=== PATIENT | male | born 1940 | race Caucasian/White ===

== ENCOUNTER 2016-04-14 10:18 | Day surgery (SDC) | payer MEDICARE, OTHER ==
[~2016-04-14] VITALS: Ht 175.3 cm; Wt 134.6 kg
[2016-04-14] VITALS (9 sets, daily range): BP systolic 112–143; BP diastolic 62–88; PULSE 55–79; RESP 13–19; O2SAT 91–98
[~2016-04-14 10:18] MED LIST: ASPI-973 PO; CETI10CA PO; COLC0.6T55 PO; CYA1000I IM; CeFAZolin Inj 3 GM in Dextrose 5% 50 ML IV ONE; FUR20 PO; HYDR30CR53 RC; KETO120S3 TP; LOSA25TA21 PO; Lactated Ringer's 1,000 ML IV SCH; METO25TA6 PO; PROB500T8 PO; ROPI0.5T2 PO; TAMS0.4C29 PO; [UNRECOGNIZED DRUG - OTHER]
[2016-04-14] MEDS ORDERED: Rocuronium 10 mg/mL 5 mL Inj ONE (10:19)
[2016-04-14] MEDS ORDERED: Neostigmine 1 mg/mL 5 mL Inj ONE (10:19)
[2016-04-14] MEDS ORDERED: Succinylcholine Chloride 20 mg/mL 5 mL Inj ONE (10:19)
[2016-04-14] MEDS ORDERED: Dexamethasone 4 mg/mL Inj ONE (10:19)
[2016-04-14] MEDS ORDERED: Propofol 10,000 mCg/mL 20 mL Inj ONE (10:19)
[2016-04-14] MEDS ORDERED: fentaNYL-PF 50 mCg/mL 2 mL Inj ONE (10:19)
[2016-04-14] MEDS ORDERED: Ondansetron 2 mg/mL 2 mL Inj ONE (10:19)
[2016-04-14] MEDS ORDERED: EPHEDrine/NS 5 mg/mL 5 mL Syringe ONE (10:19)
[2016-04-14] MEDS ORDERED: Glycopyrrolate 0.2 mg/mL 5 mL Inj ONE (10:19)
[2016-04-14] MEDS ORDERED: Lactated Ringer's 1,000 ML IV ONE (11:20)
[2016-04-14] MEDS ORDERED: Bacitracin 50,000 unit Inj IRRIGATION ONE (13:42)
[2016-04-14] MEDS ORDERED: Lactated Ringer's 1,000 ML IV SCH (13:48)
[2016-04-14] MEDS ORDERED: Lactated Ringer's 500 ML IV PRN (13:48)
--- NOTE | 2016-04-14 13:48 | PCM.HPANE ---
Patient Data Surgeon Admitting Provider: Attending Provider:Cesar Crow MD Primary Care Physician:Sher Lin Other Provider:Erica Alfaro Anesthesia Reason for Visit Left Distal Radius Fracture, Ulnar Styloid Fx Ht/WT & BMI Height (Feet): 5 Height (Inches): 9.00 Weight (Kilograms): 134.600 Body Mass Index 43.00 Allergies Coded Allergies: No Known Allergies (Verified Allergy, Unknown, 10/13/14) Past Anesthesia History Anesthesia History: Denies:: Abnormal Airway, Anesthesia Reactions, Difficult Intubation, Fam Anesthesia Reaction, Fam Malignant Hypertherm, Malignant Hyperthermia Diabetes History Hx Diabetes?: No MRSA MRSA: No Medications Blood Thinner: Aspirin Hypertension Medication: Yes Home Meds Incl Beta Estefani: Yes (Metoprolol) Date Beta Estefani Taken: Apr 14, 2016 Time Beta Estefani Taken: 0800 Reported Medications Cetirizine HCl (Zyrtec)10 Mg Giaeikq80 Mg PO HS #30 CAPSULE Ref 0 04/08/16 [wt management fiber] No Conflict Check3 Tab DAILY 04/08/16 Probenecid 500 Mg [id number] Mg PO BID 04/08/16 Losartan Potassium 25 Mg Xajnhi16 Mg PO DAILY 04/08/16 Cyanocobalamin (Cyanocobalamin Injection)1,000 Mcg/1 Ml Vial1,000 Mcg IM Monthly 04/08/16 Colchicine 0.6 Mg Tablet0.6 Mg PO DAILY 04/08/16 Tamsulosin ER 0.4 Mg Cap.er.24h0.4 Mg PO DAILY Ref 0 04/08/16 Ropinirole 0.5 Mg Tablet0.5 Mg PO HS Ref 0 04/08/16 Metoprolol Tartrate 25 Mg Gbxipx39 Mg PO BID 30 Days Ref 0 04/08/16 Ketoconazole 120 Ml [id number] Ml TP DAILY 04/08/16 Hydrocortisone 30 Gm Cream..g.30 Gm RC DAILY PRN skin irritation 04/08/16 Furosemide 20 Mg Tab20 Mg PO DAILY 30 Days Ref 0 04/08/16 Aspirin 81 Mg Tiiugo51 Mg PO DAILY Ref 0 04/08/16 Discontinued Reported Medications Multivitamin (Multi Vitamin Daily)1 Each Tablet1 Each PO DAILY 30 Days Ref 0 01/27/15 Metoprolol Tartrate 25 Mg Ktmpyh10 Mg PO BID 30 Days Ref 0 01/27/15 Betamethasone/Propylene Glyc (Betamethasone Dp Aug 0.05% Crm)15 Gm Cream..g.15 Gm TP 01/27/15 Aspirin 81 Mg Yselch95 Mg PO DAILY Ref 0 01/27/15 Tamsulosin ER 0.4 Mg Cap.er.24h0.4 Mg PO DAILY 30 Days Ref 0 08/13/14 Ropinirole 0.5 Mg Tablet0.5 Mg PO HS 30 Days Ref 0 08/13/14 Metoprolol Tartrate 25 Mg Dazlss44 Mg PO BID 30 Days Ref 0 08/13/14 Potassium Chloride ER (Klor-Con M20)20 Meq Tab.er.prt20 Meq PO DAILY 30 Days Ref 0 08/13/14 Ketoconazole 120 Ml Vphxxso826 Ml TP DAILY 08/13/14 Hydrocortisone 30 Gm Cream..g.30 Gm TP BID 08/13/14 Furosemide 40 Mg Xcylfd46 Mg PO DAILY 30 Days 08/13/14 Discontinued Scripts Hydrocodone-Acetaminophen 5-325 mg 1 Each Tablet1 Tablet PO Q4H PRN For Pain # 24 TABLET Prov:Johnny Tejada DO 04/03/16 History History of ENT Problems?: Yes HEENT History: Positive for:: Hearing Problem Sinus Problem TMJ (wears nightguard ) Denies:: Abnormal Airway Cataracts Difficult Intubation Dysphagia Hx of Heart Problems?: Yes Cardiovascular History: Positive for:: Congestive Heart Failure (most recent echo 60-65%) Hypertension Denies:: AICD Abdominal Aortic Aneurism Atrial Fibrillation Cardiac Surgery Chest Pain Heart Murmur Irregular Heartbeat Pacemaker Valvular Heart Disease (echo 2015- ef 60-65%) Hx of Respiratory Problem?: Yes Respiratory History: Positive for:: Pneumonia (november 2013- hospitalized ) Use of C-PAP Machine Denies:: Asthma COPD Emphysema Oxygen Administration Tuberculosis Hx Neurologic Problems?: No Neurological History: Denies:: Alzheimer's Disease CVA Dementia Dizziness Headaches Multiple Sclerosis Parkinson's Disease Seizures Hx of GI Problems?: No Gastrointestinal History: Denies:: Cirrhosis Diverticulitis Gastroesphageal Reflux Gastrointestinal Bleeding Heartburn Hepatitis Hiatal Hernia Rectal Bleeding Hx of Problems?: No Genitourinary History: Denies:: Kidney Stones Urinary Tract Infection Male Hx: Positive for:: Prostate Problems (BPH) Skin History: Positive for:: History Skin Disorders? (seborrhea) Hx Musculoskeletal Problems?: Yes Musculoskeletal History: Positive for:: Back Injury (chronic pain) Musculoskeletal Trauma (left wrist fx current admission problem, DOI 04/03/16) Hx of Psycho/Social Problems?: No Hx Surgeries?: Yes (rt elbow, nasal, umb hernia , ) Hx Any Other Health Problems?: Yes Other History: Positive for:: Hospitalization (CHF nov 2013 in [facility] ) Denies:: Cancer Endocrine Disease Thyroid Disease History Blood Transfusions: Denies:: Blood Transfusions Hx Diabetes: No Hx Alcohol Use: Yes (Rarely)Hx Substance Use: No Smoking Status: Never Smoker Have You Smoked inLast 12 mo: No Stop/Bang P-Blood Pressure: treated: Yes B- Body Mass Index > 35 kg/m2: Yes A- Age over 50: Yes N- Neck Large Circumference: Yes G- Gender Male: Yes MAYLIN Risk Assessment: High Risk, =/>3 Yes Risk Assessment Category Category 1A: Patient has history of documented sleep apnea, and HAS NOT received any narcotic, sedative or anesthesia administration during this stay. Category 1B: Patient has history of documented sleep apnea, and HAS received any narcotic , sedative or anesthesia administration during this stay Category 2: Patient has SUSPECTED Obstructive Sleep Apnea, and HAS received any narcotic , sedative or anesthesia administration during this stay. Category 3: Patient has SUSPECTED Obstructive Sleep Apnea and HAS NOT received narcotic, sedative or anesthesia administration during this stay. Category 4: Outpatient in Procedural Areas with known sleep apnea or who screen positive for High Risk via the STOP/BANG questionnaire. Exam Exam Vital Signs Vital Signs Date Time Temp Pulse Resp B/P Pulse Ox O2 Delivery O2 Flow Rate FiO2 04/14/16 10:46 36.2 55 18 112/67 95 Room Air General Appearance: Alert, Oriented X3, Cooperative, No Acute Distress HEENT/AIRWAY: MP 3, Neck Movement (limited) Lungs: Clear to Auscultation, Normal Air Movement Heart: Exam Unremarkable, Regular Rate/Rhythm, No Murmurs/Rubs/Gallops Meds/Labs/Diagnostics Admission Meds Current Medications Lactated Ringer's (Lr) 1,000 ml @ ud STK-MED ONCE IV Last administered on t 11:20; Start 04/14/16 at 11:20; Stop 04/14/16 at 11:21; Status DC Plan Impression Patient chart reviewed, patient interviewed and anesthestic plan with risks, benefits, and alternatives discussed, and informed consent obtained. NPO Status: 1/3@2200 ASA Physical Status: ASA3 Severe Disease Anesthetic Support Modalities: [place] Scope (elective use) Anesthetic Plan: GA Bene/Risks/Altern/Consents: Yes HP Complete Prior to Induction: Yes Gary Valdivia MD Apr 14, 2016 12:09
[2016-04-14] MEDS ORDERED: EPHEDrine Sulfate 50 mg/mL Inj IVPUSH PRN (13:50)
[2016-04-14] MEDS ORDERED: Phenylephrine 10,000 mCg/mL Inj IVPUSH PRN (13:50)
[2016-04-14] MEDS ORDERED: hydrALAZINE 20 mg/mL Inj IVPUSH PRN (13:50)
[2016-04-14] MEDS ORDERED: Ondansetron 2 mg/mL 2 mL Inj IVPUSH PRN (13:50)
[2016-04-14] MEDS ORDERED: fentaNYL-PF 50 mCg/mL 2 mL Inj IVPUSH PRN (13:50)
[2016-04-14] MEDS ORDERED: MetoCLOpramide 5 mg/mL 2 mL Inj IVPUSH PRN (13:50)
[2016-04-14] MEDS ORDERED: Atropine 0.4 mg/mL Inj IVPUSH PRN (13:50)
[2016-04-14] MEDS ORDERED: Labetalol 5 mg/mL 4 mL Inj IV PRN (13:50)
[2016-04-14] MEDS ORDERED: Ropivacaine-PF 0.5% 30 mL Inj INFILTRATE ONE (14:06)
[2016-04-14] MEDS ORDERED: Ketorolac 15 mg/mL Inj IVPUSH ONE (14:55)
[2016-04-14] MEDS ORDERED: HYDROcodone-APAP 5-325 mg Tablet PO PRN (14:55)
--- NOTE | 2016-04-14 14:58 | PCM.ORTHOP ---
Orthopedic Operative Report Date of Service: Apr 14, 2016 Pre Operative Diagnosis Left distal radius intraarticular fracture Post Operative Diagnosis Same Procedure Left distal radius open rotation internal fixation, greater than 3 pieces intra- articular, DRUJ/ulnar styloid fracture closed reduction Surgeon Surgeon: Cesar Crow MD Assistants:Red Winkler Indication for Procedure Left distal radius fracture Findings Left distal radius fracture, comminuted with intra-articular extension greater than 3 pieces Details of Procedure Estimated Blood Loss: 20 mL Findings: comminuted intraarticular fracture of distal radius, fluoroscopic imaging after ORIF shows good alignment of distal radius and no hardware complications Specimens: None Patient Status: Patient was extubated and taken to recovery room in stable condition. Procedure: Indications: Jeremy Blanchard is a 76-year-old ulptc-uxcz-opgayhxa male distal radius fracture after fall on outstretched hand. A clear explanation was given to the patient regarding the condition present, and the available conservative and surgical options. It was emphasized that the risks and benefits of surgery include but are not limited to infection, wound healing problems, damage to adjacent structures such as nerves, blood vessels and tendons, terminal clerk disability and pain, arthritis, hypersensitivity, deep vein thrombosis, pulmonary embolism, broken hardware, failure of surgery, need for further procedures at time of surgery or later, cast related problems, loss of limb or life. The patient was given an explanation and the patient voiced understanding of what to expect after the procedure or surgery, the limitations in activities of daily living, the likely duration for post operative recovery and the instructions that are to be followed. At the end the patient was invited to seek clarification or ask further questions but there were none. The patient voiced understanding of the entire consultation. Description of Procedure: Patient was taken to operating room and transferred to operating table in supine position. Time out was performed with both anesthesia and orthopaedics faculty present to confirm details of case to be performed. After time out performed, patient placed under general anesthesia and endotracheal tube secured into place. Once endotracheal tube secured, proximal arm tourniquet was placed over softroll and secured with tape. Patient position was again checked to ensure all bony prominences adequately padded. The left arm was prepped and draped in the usual sterile fashion to the level of the tourniquet. The left upper extremity was then exsanguinated with an esmark and the tourniquet was then inflated to 250 mmHG. Incision was made approximately 5 cm long over the course of the flexor carpi radialis (FCR) tendon. Hemostasis was controlled with electrocautery. The flexor carpi radialis tendon sheath was identified. The sheath was then entered with tenotomy scissors and released. The FCR tendon sheath was dissected distally to the level of the superficial radial artery. The FCR tendon was retracted towards the ulna to protect the median nerve. At this time the radial artery was identified and protected and retracted towards the radial side. Incision through the floor of the FCR sheath was performed. The pronator quadratus was identified and released by sharp dissection over the radial and distal edge by making a L incision. A periosteal elevator was used to elevate the pronator quadratus to expose the volar surface of the radius. The fracture site was identified and the distal fragment was released and freed up using a freer elevator. The extent of comminution was appreciated at this time. There was note comminution readily apparent with elevation of the distal fragment. The fracture site was debrided with a rongeur and curette. The fracture was reduced and secured with a K-wire. This was confirmed with fluoroscopy. Once the distal fragments were mobilized the fracture was then reduced by placing the Arthrex volar plate on the radial shaft and securing it distally with 2 K- wires through the plate. After verifying plate alignment and location of the wires close to subchondral bone, the distal row was fixed with smooth pegs. Then using a buttress effect the distal fragments were levered into a reduced position and secured with cortical shaft screws. Fluoroscopy confirmed acceptable reduction. Once the plate placement was appropriate the distal drill holes were drilled and filled with locking screws. Proper plate alignment and screw placement was checked once more with fluoroscopy in both the AP and lateral views. Final plate position was confirmed with orthogonal views with fluoroscopy imaging that was saved in PACs. The DRUJ was noted to be mildly unstable performing fluoroscopic exams. The DRUJ/ulna styloid was closed reduced in neutral. The wound was then thoroughly irrigated with NS. The pronator quadratus was reapproximated with 4-0 Vycril suture. Subcutaneous closure completed with 4-0 Vycril suture and skin closure with 3-0 Nylon suture. Sterile dressing was placed on the incision as well as the hand and forearm which was then wrapped with soft roll. A sugar tong splint was applied to the left forearm after reduction and wrapped with Luigi wraps. A shoulder sling was also placed for comfort. Patient was then awoken from anesthesia and extubated, his neurovascular status was intact when checked in PACU. Patient tolerated procedure well and there were no complications. I was present and scrubbed for the entire procedure. CLINICAL TRIALS SPECIALIST SURGEON: During the operation, the services of physician director surgical were medically indicated and necessary to provide exposure of the operative site for the surgical procedure and to maintain the limb in a proper position to carry out the operation safely and efficiently. Without the qualified accounting manager assistant controller being present, it would have extended the operative procedure and made the procedure technically more difficult to perform. Grafts, Implants: Implants-See Implant Record Complications There were no periprocedural complications identified. Condition Stable Anesthetic Administered: GA Catheters: None Output, Estimated Blood Loss: 20 Blood Admin during surgery: No Surgical Cast or Splint: Short Arm Splint Surgical Specimen Removed: No Specimen sent to Pathology: No copies to: Cesar Crow MD, Christopher L MD Apr 14, 2016 14:57
--- NOTE | 2016-04-14 15:29 | PCM.ANEP1 ---
Post Anesthesia Phase 1 PACU Phase 1 Assessment Date of Service: Apr 14, 2016 Vital Signs Vital Signs Date Time Temp Pulse Resp B/P Pulse Ox O2 Delivery O2 Flow Rate FiO2 04/14/16 15:26 56 17 134/62 95 Room Air 04/14/16 15:16 36 58 17 121/63 96 Room Air 04/14/16 10:46 36.2 55 18 112/67 95 Room Air Anesthetic Administered: GA Level of Alertness: Awake, talking CARLSON's with Equal Strength: Yes Pain: No Nausea or Vomiting: No Oxygen Delivery: Simple Mask Lungs: Clear to Auscultation, Normal Air Movement Gary Valdivia MD Apr 14, 2016 15:29
[2016-04-14] MEDS: HYDROmorphone 1 mg/mL Inj IVPUSH PRN ×2 (15:36→15:47)
--- NOTE | 2016-04-14 16:19 | PCM.ANEP2 ---
Post Anesthesia Evaluation ASA/CMS Post Anesthesia VS in Patient's Normal Range?: Yes Resp Stable; Airway Patent?: Yes CV Function & Hydration Stable: Yes Mental Status Recovered?: Yes Pain control Satisfactory?: Yes N/V Control Satisfactory?: Yes Gary Valdivia MD Apr 14, 2016 16:19
== END 2016-04-14 23:59 | disposition home or self-care (01) ==
LOC: SAS 10:18
PROVIDERS: ATTEND Orthopaedic Surgery
DX: S52.572A Other intraarticular fracture of lower end of left radius, initial encounter for closed fracture (principal); W18.30XA Fall on same level, unspecified, initial encounter; Y92.9 Unspecified place or not applicable; Y93.9 Activity, unspecified; Y99.9 Unspecified external cause status; I50.9 Heart failure, unspecified; N40.0 Benign prostatic hyperplasia without lower urinary tract symptoms; I10 Essential (primary) hypertension; G25.81 Restless legs syndrome; E66.01 Morbid (severe) obesity due to excess calories; Z79.82 Long term (current) use of aspirin; Z87.891 Personal history of nicotine dependence; Z68.41 Body mass index [BMI] 40.0-44.9, adult; Z86.010 Personal history of colon polyps
CPT/HCPCS: 25609; 76001; C1713; J0330; J0690; J1100; J1170; J1885; J2405; J2710; J2795; J7120